=== PATIENT | female | born 1975 | race Caucasian/White ===

== ENCOUNTER 2018-04-17 13:53 | Emergency (ER) | payer SELFPAY ==
[2018-04-17 14:27] VITALS: BP 107/60
--- NOTE | 2018-04-17 16:03 | ER Document Report ---
HPI - HPI Pain Level: 3 Context: 42 yo female c/o fever, bodyaches, cough x 3 days. Associated Symptoms: None Exacerbated by: Denies Relieved by: Denies - CONSTITUTIONAL Constitutional: REPORTS: Fever - EENT EENT: REPORTS: Sore Throat Past Medical History - General Information source: Patient - Social History Smoking Status: Current Every Day Smoker Chew tobacco use (# tins/day): No Drug Abuse: Marijuana Lives with: Alone Family History: Reviewed & Not Pertinent Patient has suicidal ideation: No Patient has homicidal ideation: No - Medical History Medical History: Negative Renal/ Medical History: Denies: Hx Peritoneal Dialysis Vertical Provider Document - INFECTION CONTROL TRAVEL OUTSIDE OF THE [place] IN LAST 30 DAYS: Yes - HEENT HEENT: Atraumatic, Normal ENT Exam, PERRLA - NECK Neck: Normal Inspection, Supple, Lymphadenopathy-Left, Lymphadenopathy-Right - RESPIRATORY Respiratory: Breath Sounds Normal, No Respiratory Distress - GI/ABDOMEN Gastrointestinal: Abdomen Soft - MUSCULOSKELETAL/EXTREMETIES Musculoskeletal/Extremeties: SEGUNDO MUNOZ - NEURO Level of Consciousness: Awake, Alert, Appropriate - DERM Integumentary: Warm, Dry, No Rash Course - Re-evaluation Re-evalutation: 04/17/18 16:00 History and physical are consistent with a viral illness without symptoms of pneumonia or sepsis. - Vital Signs Vital signs: Temp Pulse Resp BP Pulse Ox 98.8 F 86 20 107/60 99 04/17/18 14:25 04/17/18 14:25 04/17/18 14:25 04/17/18 14:25 04/17/18 14:25 Discharge - Discharge Clinical Impression: Viral illness Condition: Stable Disposition: HOME, SELF-CARE Instructions: Acetaminophen, Fever ([facility]), Viral Syndrome ([facility]), Use of Over-The -Counter Ibuprofen ([facility]) Additional Instructions: you have viral illness recommend over the counter cold medication for symptom control rest and hydrate follow up with primary care if symptoms persist
== END 2018-04-17 16:11 | disposition home or self-care (01) ==
LOC: ER 13:53
DX: B34.9 Viral infection, unspecified (principal); R50.9 Fever, unspecified; M79.1 Myalgia; R05 Cough; F17.200 Nicotine dependence, unspecified, uncomplicated
CPT/HCPCS: 99283